=== PATIENT | male | born 1980 | race Caucasian/White ===

== ENCOUNTER 2021-10-25 18:49 | Emergency (ER) | payer SELFPAY ==
[~2021-10-25] VITALS: Ht 177.8 cm; Wt 79.8 kg
[2021-10-25] MEDS ORDERED: TDAP [DIPH/PERTUSSIS/TET] 0.5 ML VIAL IM ONE ×2 (20:00→20:45)
[2021-10-25] MEDS ORDERED: CEPHALEXIN MONOHYDRATE 500 MG CAPSULE PO ONE ×2 (20:00→20:45)
[2021-10-25] MEDS ORDERED: HYDROCODONE/APAP 5/325MG TABLET PO ONE (20:00)
[2021-10-25] MEDS ORDERED: LIDOCAINE HCL/PF 1% 30 ML VIAL TP ONE (20:00)
--- NOTE | 2021-10-25 20:00 | NUR ---
TO ER BED 4. BIBFRIEND. C/O L HAND 2ND DIGIT LAC, CUT BY SAW. TETANUS UNKNOWN. WOUND IS OPEN TO AIR , ACTIVELY BLEEDING. KEPT CLEAN AND PRESSURE APPLIED. PT IS ALERT AND ORINETED . RR EVEN AND NONLABORED. CONNECTED TO MONITOR. AWAITING MD LEMUS
--- NOTE | 2021-10-25 20:42 | NUR ---
DR YAEL DACOSTA PER JEFF SMITH.
[2021-10-25] MEDS ORDERED: HYDROCODONE/APAP 5/325MG TABLET ONE (20:45)
[2021-10-25] MEDS ORDERED: LIDOCAINE HCL/PF 1% 30 ML SDV ONE (21:05)
[2021-10-25] MEDS ORDERED: HYDR-4303 PO (22:22)
[2021-10-25] MEDS ORDERED: CEPH500C2 PO (22:22)
[2021-10-25] MEDS ORDERED: IBUP-1955 PO (22:22)
--- NOTE | 2021-10-25 22:27 | NUR ---
DIRECTOR SEARCH AT BEDSIDE FOR WOUND CARE
--- NOTE | 2021-10-25 22:34 | NUR ---
Patient discharged to home in stable condition. Written and verbal after care instructions given. Patient verbalizes understanding of instruction.
[2021-10-25 22:35] VITALS: BP 120/78
== END 2021-10-25 22:35 | disposition home or self-care (01) ==
LOC: ER 19:03
DX: S62.631B Displaced fracture of distal phalanx of left index finger, initial encounter for open fracture (principal); L08.9 Local infection of the skin and subcutaneous tissue, unspecified; W26.8XXA Contact with other sharp object(s), not elsewhere classified, initial encounter; Y93.89 Activity, other specified; Y92.89 Other specified places as the place of occurrence of the external cause; Y99.8 Other external cause status
CPT/HCPCS: 99285; 13131; 90471; 90715; 73140; J3490 ×2

== ENCOUNTER 2021-11-09 21:16 | Emergency (ER) | payer SELFPAY ==
[~2021-11-09] VITALS: Ht 177.8 cm; Wt 79.8 kg
[~2021-11-09 21:16] MED LIST: CEPH500C2 PO; HYDR-4303 PO; IBUP-1955 PO
[2021-11-09 22:53] VITALS: BP 117/67
== END 2021-11-09 23:18 | disposition home or self-care (01) ==
LOC: ER 21:34
DX: Z48.02 Encounter for removal of sutures (principal); Z79.899 Other long term (current) drug therapy